=== PATIENT | female | born 2000 | race Caucasian/White ===

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

== ENCOUNTER 2020-07-19 16:01 | Emergency (ER) | payer OTHER ==
[2020-07-19 16:39] VITALS: RESP 18
[2020-07-19] MEDS ORDERED: ACETAMINOPHEN TAB 500 MG TAB PO STA (16:50)
[2020-07-19] MEDS ORDERED: IBUPROFEN 600 MG TAB PO STA (16:50)
--- NOTE | 2020-07-19 17:18 | ED ---
ENT HPI - General Chief complaint: ENT Stated complaint: sore throat Time Seen by Provider: 07/19/20 16:38 Source: patient, RN notes reviewed, old records reviewed Mode of arrival: ambulatory Limitations: no limitations - History of Present Illness Initial comments: 20-year-old female presents the ER today for evaluation for sore throat pain with swallowing for the past day. Patient reports she's also had a minor cough. She denies any known history of exposure to sick contacts. She reports that she's had no fever. Her main complaints of cold swallowing. She denies trismus. Patient states that she is up-to-date on vaccines. - Related Data Home Medications Medication Instructions Recorded Confirmed Loratadine [Claritin] 10 mg PO DAILY 07/19/20 07/19/20 Previous Rx's Medication Instructions Recorded Acetaminophen Tab [Tylenol Tab] 500 mg PO Q4H #30 tablet 07/19/20 Amoxicillin 500 mg PO Q8H #30 capsule 07/19/20 Azithromycin [Zithromax Z-pack (6 250 mg PO DIRECTED 5 Days #6 tab 07/19/20 tabs)] predniSONE [Deltasone] 20 mg PO BID #10 tab 07/19/20 Allergies Allergy/AdvReac Type Severity Reaction Status Date / Time No Known Allergies Allergy Verified 07/19/20 17:27 Review of Systems ROS Statement: Those systems with pertinent positive or pertinent negative responses have been documented in the HPI. ROS Other: All systems not noted in ROS Statement are negative. Past Medical History Past Medical History: No Reported History History of Any Multi-Drug Resistant Organisms: None Reported Past Surgical History: Section Past Psychological History: Anxiety, Depression Smoking Status: Current every day smoker Past Alcohol Use History: None Reported Past Drug Use History: None Reported General Exam - General Exam Comments Initial Comments: 20-year-old ill. No distress female. Limitations: no limitations Head exam: Present: atraumatic, normocephalic, normal inspection Eye exam: Present: normal appearance, PERRL, EOMI. Absent: scleral icterus, conjunctival injection, periorbital swelling ENT exam: Present: normal exam, mucous membranes moist. Absent: normal oropharynx (Erythematous oropharynx evidence of enlarged tonsils with exudates bilaterally. No signs of tonsillar abscess) Neck exam: Present: normal inspection. Absent: tenderness, meningismus, lymphadenopathy Respiratory exam: Present: normal lung sounds bilaterally. Absent: respiratory distress, wheezes, rales, rhonchi, stridor Cardiovascular Exam: Present: regular rate, normal rhythm, normal heart sounds. Absent: systolic murmur, diastolic murmur, rubs, gallop, clicks GI/Abdominal exam: Present: soft, normal bowel sounds. Absent: distended, tenderness, guarding, rebound, rigid Extremities exam: Present: normal inspection, full ROM, normal capillary refill. Absent: tenderness, pedal edema, joint swelling, calf tenderness Back exam: Present: normal inspection Neurological exam: Present: alert, oriented X3, CN II-XII intact Psychiatric exam: Present: normal affect, normal mood Skin exam: Present: warm, dry, intact, normal color. Absent: rash Course Vital Signs 07/19/20 07/19/20 07/19/20 16:12 16:39 17:24 Temperature 98.7 F Pulse Rate 125 H 135 H 115 H Respiratory 20 18 18 Rate Blood Pressure 145/48 115/100 128/78 O2 Sat by Pulse 98 98 98 Oximetry 07/19/20 18:07 Temperature 98.6 F Pulse Rate 120 H Respiratory 18 Rate Blood Pressure 119/91 O2 Sat by Pulse 97 Oximetry Medical Decision Making - Medical Decision Making Visual lewis since returns has complaints of cough sore throat. She is evidence of exudates on bilateral tonsils. Rapid strep, testing are negative. Chest x-ray showed concern for possible infiltrate. Patient was started on azithromycin and amoxicillin. Advised following up with primary care doctor. Discussed return parameters. All questions answered. - Lab Data Lab Results 07/19/20 07/19/20 Range/Units 16:50 17:08 Coronavirus (PCR) Not Detected (Not Detectd) Group A Strep Rapid Negative (Negative) - Radiology Data Radiology results: report reviewed Possible small infiltrate in the right lower lobe medially. Disposition Clinical Impression: Pharyngitis Disposition: HOME SELF-CARE Condition: Good Instructions (If sedation given, give patient instructions): Pharyngitis (ED) Additional Instructions: Take the medication as prescribed. Return to emergency department if any alarming signs or symptoms occur. Prescriptions: Amoxicillin 500 mg PO Q8H #30 capsule predniSONE [Deltasone] 20 mg PO BID #10 tab Acetaminophen Tab [Tylenol Tab] 500 mg PO Q4H #30 tablet Azithromycin [Zithromax Z-pack (6 tabs)] 250 mg PO DIRECTED 5 Days #6 tab Is patient prescribed a controlled substance at d/c from ED?: No Referrals: Nonstaff,Physician [Primary Care Provider] - 1-2 days Time of Disposition: 17:55
[2020-07-19] MEDS ORDERED: AMOXICILLIN 500MG STARTER PACK 3 CAP BTL PO STA (17:55)
--- NOTE | 2020-07-19 18:00 | XR ---
EXAMINATION TYPE: XR chest 1V DATE OF EXAM: 07/19/2020 COMPARISON: NONE HISTORY: Cough and sore throat TECHNIQUE: Single view FINDINGS: There is normal heart and mediastinum. There is possible mild infiltrate in the medial righ t lower lobe. The other lung lewis are clear. There are chest leads. Bony thorax is intact. IMPRESSION: Possible small infiltrate in the right lower lobe medially.
[2020-07-19] MEDS ORDERED: predniSONE 50 MG TAB PO STA (18:01)
[2020-07-19 18:08] VITALS: BP 119/91; PULSE 120; TEMP 98.6
== END 2020-07-19 18:07 | disposition home or self-care (01) ==
LOC: EC 16:01
DX: J02.9 Acute pharyngitis, unspecified (principal); F17.200 Nicotine dependence, unspecified, uncomplicated
CPT/HCPCS: 71045; 87081; 87430; 87635; 99284

== ENCOUNTER 2021-06-27 19:11 | Emergency (ER) | payer OTHER ==
[2021-06-27 20:37] VITALS: BP 152/90; PULSE 90; RESP 19; TEMP 98.8
--- NOTE | 2021-06-27 20:55 | XR ---
EXAMINATION TYPE: XR lumbar spine 2 or 3V DATE OF EXAM: 06/27/2021 COMPARISON: None INDICATION: Fall, pain TECHNIQUE: 3 view lumbar spine FINDINGS: There are 5 lumbar-type vertebral bodies. Pedicles are intact. Disc heights are preserved. Vertebral body heights are preserved. Alignment is normal. IMPRESSION: 1. Normal three-view lumbar spine.
--- NOTE | 2021-06-27 21:00 | XR ---
EXAMINATION TYPE: XR pelvis AP view DATE OF EXAM: 06/27/2021 COMPARISON: None INDICATION: Low back pain, fall TECHNIQUE: AP pelvis FINDINGS: IUD is in the midline. Osseous structures are normal. Sacroiliac joints and symphysis pubis are normal. Femoral heads articu late with the acetabulum. IMPRESSION: 1. Normal AP pelvis
--- NOTE | 2021-06-28 00:33 | ED ---
Back Pain HPI - General Chief Complaint: Back Pain/Injury Stated Complaint: IHS-slip & fall, Female Time Seen by Provider: 06/28/21 00:00 Source: patient, RN notes reviewed Mode of arrival: ambulatory Limitations: no limitations - History of Present Illness Initial Comments: Patient is a 21-year-old female presenting to the emergency Department with complaints of continued low back pain after she fell total of 3 times at work about 3 days ago. Patient states is the first time his nose and she was at work, taking out the trash and doing other tasks and she fell a total of 3 times on the ice, landing mostly on her behind. She states she never hit her head, no extremity pain. She states she's been having pain in her bottom and her low back ever since. She states it hurts to bear down to have a bowel movement or even to sit and urinate. She had a little bit of blood mixed in her stool 2 days ago and that concerned her. Patient states she has an IUD and is concerned that that may have moved. She denies any pelvic pain, no vaginal bleeding. She denies any chest pain or shortness of breath. She has no further complaints. Her vitals are stable upon arrival. - Related Data Home Medications Medication Instructions Recorded Confirmed Loratadine [Claritin] 10 mg PO DAILY 07/19/20 07/19/20 Previous Rx's Medication Instructions Recorded Acetaminophen Tab [Tylenol Tab] 500 mg PO Q4H #30 tablet 07/19/20 Amoxicillin 500 mg PO Q8H #30 capsule 07/19/20 Azithromycin [Zithromax Z-pack (6 250 mg PO DIRECTED 5 Days #6 tab 07/19/20 tabs)] predniSONE [Deltasone] 20 mg PO BID #10 tab 07/19/20 Allergies Allergy/AdvReac Type Severity Reaction Status Date / Time No Known Allergies Allergy Verified 07/19/20 17:27 Review of Systems ROS Statement: Those systems with pertinent positive or pertinent negative responses have been documented in the HPI. ROS Other: All systems not noted in ROS Statement are negative. Past Medical History Past Medical History: No Reported History History of Any Multi-Drug Resistant Organisms: None Reported Past Surgical History: Section Past Psychological History: Anxiety, Depression Smoking Status: Current every day smoker Past Alcohol Use History: None Reported Past Drug Use History: None Reported General Exam - General Exam Comments Initial Comments: GENERAL: Patient is well-developed and well-nourished. Patient is nontoxic and in no acute distress. HEAD: Atraumatic, normocephalic. NECK: Normal range of motion, supple without lymphadenopathy or JVD. LUNGS: Unlabored respirations. Breath sounds clear to auscultation bilaterally and equal. No wheezes rales or rhonchi. HEART: Regular rate and rhythm without murmurs, rubs or gallops. ABDOMEN: Soft, nontender, normoactive bowel sounds. No guarding, no rebound. No masses appreciated. : Deferred MUSCULOSKELETAL: Discomfort with palpation of the lower back, sacrum area. No bruising, no acute deformity. Normal extremities with adequate strength and normal range of motion, no pitting or edema. No clubbing or cyanosis. NEUROLOGICAL: Patient is alert and oriented x 3. SKIN: Warm, Dry, normal turgor, no rashes or lesions noted. Limitations: no limitations Course Vital Signs 06/27/21 20:34 Temperature 98.8 F Pulse Rate 90 Respiratory 19 Rate Blood Pressure 152/90 O2 Sat by Pulse 98 Oximetry Medical Decision Making - Medical Decision Making Patient is a 21-year-old female here with complaints of low back pain after she fell 3 times at work on Friday. Lumbar x-rays and pelvic x-ray revealed no acute fracture/dislocation, there is an IUD present which is midline. She's had no vaginal bleeding, she was concerned for the IUD moving. I discussed with her as most likely contusion, recommended ibuprofen or Aleve for discomfort, heat and/or ice the area. To give her work note. She is stable for discharge. Return parameters were discussed with her and she verbalized understanding. Disposition Clinical Impression: Fall, Sacral contusion Disposition: HOME SELF-CARE Condition: Stable Instructions (If sedation given, give patient instructions): Contusion in Adults (ED) Additional Instructions: Please return to the Emergency Department if symptoms worsen or any other concerns. Apply heat and/or ice to the area, take ibuprofen for discomfort. Follow-up with your primary care as needed. Is patient prescribed a controlled substance at d/c from ED?: No Referrals: None,Stated [Primary Care Provider] - 1-2 days Time of Disposition: 00:33
== END 2021-06-28 01:21 | disposition home or self-care (01) ==
LOC: EC 19:11
DX: S30.0XXA Contusion of lower back and pelvis, initial encounter (principal); F41.9 Anxiety disorder, unspecified; F32.A Depression, unspecified; F17.200 Nicotine dependence, unspecified, uncomplicated; W00.0XXA Fall on same level due to ice and snow, initial encounter; Y99.0 Civilian activity done for income or pay
CPT/HCPCS: 72100; 72170; 99283

== ENCOUNTER 2022-01-19 14:37 | Emergency (ER) | payer OTHER ==
[2022-01-19 14:43] VITALS: RESP 16
--- NOTE | 2022-01-19 15:07 | ED ---
General Adult HPI - General Chief complaint: Nausea/Vomiting/Diarrhea Stated complaint: Gi Issues/Vommiting/Headache Time Seen by Provider: 01/19/22 14:46 Source: patient Mode of arrival: ambulatory Limitations: no limitations - History of Present Illness Initial comments: Patient is a 21-year-old female presents the emergency room with complaints of diarrhea, nausea and vomiting. She reports symptoms began early this morning and are frequent in nature. She denies any fevers or chills. She denies any blood in her stool or emesis. She does note that one of her coworkers was ill yesterday and did not go to the doctor for any workup. Other than that she denies any other sick contacts. She denies any known exposure to influenza or COVID She reports that her partner is concerned that she may be however she has an IUD in place without any concerns of device loss and it is not due for exchange until 2024. She denies any other complaints or concerns at this time. - Related Data Home Medications Medication Instructions Recorded Confirmed No Known Home Medications 01/19/22 01/19/22 Allergies Allergy/AdvReac Type Severity Reaction Status Date / Time No Known Allergies Allergy Verified 01/19/22 14:42 Review of Systems ROS Statement: Those systems with pertinent positive or pertinent negative responses have been documented in the HPI. ROS Other: All systems not noted in ROS Statement are negative. Past Medical History Past Medical History: No Reported History History of Any Multi-Drug Resistant Organisms: None Reported Past Surgical History: Section Past Psychological History: Anxiety, Depression Smoking Status: Current every day smoker Past Alcohol Use History: None Reported Past Drug Use History: None Reported General Exam Limitations: no limitations General appearance: alert, in no apparent distress Head exam: Present: atraumatic, normocephalic, normal inspection Eye exam: Present: normal appearance, PERRL, EOMI. Absent: scleral icterus, conjunctival injection, periorbital swelling ENT exam: Present: normal exam, mucous membranes moist Neck exam: Present: normal inspection. Absent: tenderness, meningismus, lymphadenopathy Respiratory exam: Present: normal lung sounds bilaterally. Absent: respiratory distress, wheezes, rales, rhonchi, stridor Cardiovascular Exam: Present: regular rate, normal rhythm, normal heart sounds. Absent: systolic murmur, diastolic murmur, rubs, gallop, clicks GI/Abdominal exam: Present: soft, normal bowel sounds. Absent: distended, tenderness, guarding, rebound, rigid Extremities exam: Present: normal inspection, full ROM, normal capillary refill. Absent: tenderness, pedal edema, joint swelling, calf tenderness Back exam: Present: normal inspection Neurological exam: Present: alert, oriented X3, CN II-XII intact Psychiatric exam: Present: normal affect, normal mood Skin exam: Present: warm, dry, intact, normal color. Absent: rash Course Vital Signs 01/19/22 14:39 Temperature 98.2 F Pulse Rate 72 Respiratory 16 Rate Blood Pressure 114/65 O2 Sat by Pulse 98 Oximetry Medical Decision Making - Medical Decision Making Due to recent sick exposure will check influenza and COVID Swab along with urinalysis and test. Further diagnostic testing pending results. COVID, influenza and test all negative. Trace blood and bacteria without leukocytosis or nitrates on urinalysis; likely secondary to contaminated overall patient is feeling better and denies the need for further testing at this time. Will discharge home encouraged hydration and discussed return parameters. Case discussed with Dr. Savage. - Lab Data Lab Results 01/19/22 01/19/22 01/19/22 Range/Units 15:01 15:01 15:01 Urine Color Urine Appearance (Clear) Urine pH (5.0-8.0) Ur Specific [place] (1.001-1.035) Urine Protein (Negative) Urine Glucose (UA) (Negative) Urine Ketones (Negative) Urine Blood (Negative) Urine Nitrite (Negative) Urine Bilirubin (Negative) Urine Urobilinogen (<2.0) mg/dL Ur Leukocyte Esterase (Negative) Urine RBC (0-5) /hpf Urine WBC (0-5) /hpf Ur Squamous Epith Cells (0-4) /hpf Urine Bacteria (None) /hpf Urine Mucus (None) /hpf Urine HCG, Qual Not Detected (Not Detectd) Coronavirus (PCR) Not Detected (Not Detectd) Influenza Type A RNA Not Detected (Not Detectd) Influenza Type B (PCR) Not Detected (Not Detectd) 01/19/22 Range/Units 15:01 Urine Color Yellow Urine Appearance Cloudy H (Clear) Urine pH 5.5 (5.0-8.0) Ur Specific [place] 1.021 (1.001-1.035) Urine Protein Trace H (Negative) Urine Glucose (UA) Negative (Negative) Urine Ketones Negative (Negative) Urine Blood Small H (Negative) Urine Nitrite Negative (Negative) Urine Bilirubin Negative (Negative) Urine Urobilinogen <2.0 (<2.0) mg/dL Ur Leukocyte Esterase Negative (Negative) Urine RBC 4 (0-5) /hpf Urine WBC 1 (0-5) /hpf Ur Squamous Epith Cells 13 H (0-4) /hpf Urine Bacteria Rare H (None) /hpf Urine Mucus Many H (None) /hpf Urine HCG, Qual (Not Detectd) Coronavirus (PCR) (Not Detectd) Influenza Type A RNA (Not Detectd) Influenza Type B (PCR) (Not Detectd) Disposition Clinical Impression: Gastroenteritis Disposition: HOME SELF-CARE Condition: Good Instructions (If sedation given, give patient instructions): Acute Nausea and Vomiting (ED) Additional Instructions: Please drink plenty of fluids. Follow-up with your primary care provider. Please return to the Emergency Department if symptoms worsen or any other concerns. Is patient prescribed a controlled substance at d/c from ED?: No Referrals: None,Stated [Primary Care Provider] - 1-2 days Time of Disposition: 16:54
[2022-01-19 16:06] LABS: Appearance,Urine Cloudy (Clear); Bacteria,Urine Rare /hpf; Bilirubin,Urine Negative (Negative); Blood,Urine Small (Negative); Color,Urine Yellow; Glucose,Urine (UA) Negative (Negative); Ketones,Urine Negative (Negative); Leukocyte Esterase,Urine Negative (Negative); Mucus,Urine Many /hpf; Nitrite,Urine Negative (Negative); PH, Urine 5.5 (5.0-8.0); Protein,Urine Trace (Negative); RBC,Urine 4 /hpf (0-5); Specific Gravity,Urine 1.021 (1.001-1.035); Squamous Epithelial Cell,Urine 13 /hpf (0-4); Urobilinogen,Urine <2.0 mg/dL (<2.0); WBC,Urine 1 /hpf (0-5)
[2022-01-19 17:11] VITALS: BP 116/68; PULSE 70; TEMP 98
== END 2022-01-19 17:09 | disposition home or self-care (01) ==
LOC: EC 14:37
DX: K52.9 Noninfective gastroenteritis and colitis, unspecified (principal); F17.200 Nicotine dependence, unspecified, uncomplicated; Z20.822 Contact with and (suspected) exposure to COVID-19
CPT/HCPCS: 81001; 81025; 87502; 87635; 99284

== ENCOUNTER 2022-05-21 08:41 | Emergency (ER) | payer OTHER ==
[2022-05-21 08:50] VITALS: BP 109/72; PULSE 76; RESP 20; TEMP 98.5
--- NOTE | 2022-05-21 09:46 | ED ---
Headache HPI - General Chief Complaint: Headache Stated Complaint: nausea, headache Time Seen by Provider: 05/21/22 08:53 Source: patient, RN notes reviewed Mode of arrival: ambulatory Limitations: no limitations - History of Present Illness Initial Comments: This is a 22-year-old female who presents to the emergency department for headaches, nausea, body aches, and coughing. States that the symptoms started 4 days ago. Denies any fevers or sick contacts. Denies any hx of asthma or other respiratory illnesses. Also denies any chest pain or shortness of breath. She is taking Aleve for her headache with mild relief. Denies any fevers, chills, sore throat, dyspnea, chest pain, palpitations, abdominal pain, nausea, vomiting, diarrhea, or back pain. MD Complaint: headache Onset/Timin -: days(s) Other Symptoms: cough - Related Data Previous Rx's Medication Instructions Recorded Nirmatrelvir/Ritonavir [Paxlovid 1 pack PO BID 5 Days #30 each 05/21/22 300-100 mg Pack (Eua)] Ondansetron Odt [Zofran Odt] 4 mg PO Q8HR PRN #15 tab 05/21/22 Allergies Allergy/AdvReac Type Severity Reaction Status Date / Time No Known Allergies Allergy Verified 05/21/22 08:49 Review of Systems ROS Statement: Those systems with pertinent positive or pertinent negative responses have been documented in the HPI. ROS Other: All systems not noted in ROS Statement are negative. Past Medical History Past Medical History: No Reported History History of Any Multi-Drug Resistant Organisms: None Reported Past Surgical History: Section Past Psychological History: Anxiety, Depression Smoking Status: Current every day smoker Past Alcohol Use History: None Reported Past Drug Use History: Marijuana General Exam Limitations: no limitations General appearance: alert, in no apparent distress Head exam: Present: atraumatic, normocephalic, normal inspection Eye exam: Present: normal appearance, PERRL, EOMI. Absent: scleral icterus, conjunctival injection, periorbital swelling Respiratory exam: Present: normal lung sounds bilaterally. Absent: respiratory distress, wheezes, rales, rhonchi, stridor Cardiovascular Exam: Present: regular rate, normal rhythm, normal heart sounds. Absent: systolic murmur, diastolic murmur, rubs, gallop, clicks Neurological exam: Present: alert, oriented X3, CN II-XII intact Psychiatric exam: Present: normal affect, normal mood Skin exam: Present: warm, dry, intact, normal color. Absent: rash Course Vital Signs 05/21/22 08:48 Temperature 98.5 F Pulse Rate 76 Respiratory 20 Rate Blood Pressure 109/72 O2 Sat by Pulse 99 Oximetry Medical Decision Making - Medical Decision Making This is a 22-year-old female who presents to the emergency department for headaches and nausea. Patient did test positive for COVID-19. I offered a migraine cocktail for additional relief of her symptoms, however the patient declined. Prescription for Zofran and Paxlovid provided. Recommended getting plenty of rest and continuing with symptomatic management. The patient is also instructed to quarantine for 5 days and practice extra precautions for an additional 5 days, including always wearing a mask around others and avoiding travel. Return precautions reviewed in depth, the patient is instructed to return to the emergency department with any new, worsening, or concerning symptoms. Patient verbalized understanding. This case was discussed in detail with the attending ED physician. Presentation, findings, and treatment plan discussed in detail as well. - Lab Data Lab Results 05/21/22 Range/Units 08:51 Coronavirus (PCR) Detected A (Not Detectd) Disposition Clinical Impression: COVID-19 Disposition: HOME SELF-CARE Instructions (If sedation given, give patient instructions): COVID-19 ( Coronavirus Disease 2019) (ED), How to Recover from COVID-19 at Home (ED) Additional Instructions: Return to the emergency department with any new, worsening, or concerning symptoms. The Zofran can be taken every 8 hours as needed for nausea and vomiting. Take the Paxlovid as prescribed for 5 days. Make sure that you are getting plenty of rest and continuing with symptomatic management. You are instructed to quarantine for 5 days and practice extra precautions for an additional 5 days, including always wearing a mask around others and avoiding travel. Prescriptions: Nirmatrelvir/Ritonavir [Paxlovid 300-100 mg Pack (Eua)] 1 pack PO BID 5 Days #30 each Ondansetron Odt [Zofran Odt] 4 mg PO Q8HR PRN #15 tab PRN Reason: Nausea And Vomiting Is patient prescribed a controlled substance at d/c from ED?: No Referrals: None,Stated [Primary Care Provider] - 1-2 days
== END 2022-05-21 09:59 | disposition home or self-care (01) ==
LOC: EC 08:41
DX: U07.1 COVID-19 (principal); F17.200 Nicotine dependence, unspecified, uncomplicated; F32.A Depression, unspecified; F41.9 Anxiety disorder, unspecified; Z79.899 Other long term (current) drug therapy
CPT/HCPCS: 87635; 99284